=== PATIENT | male | born 1975 | race Two or more races ===

== ENCOUNTER 2017-12-03 10:23 | Observation (INO) | payer BC ==
[2017-12-03] MEDS ORDERED: Sodium Chloride 0.9% 10 ML Syringe FLUSH PRN ×2 (10:57→14:54)
[2017-12-03] MEDS ORDERED: Sodium Chloride 0.9% 2.5 ML Syringe FLUSH PRN ×2 (10:57→14:54)
[2017-12-03] MEDS ORDERED: Sodium Chloride 0.9% 1,000 ML IV ONE (10:57)
[2017-12-03] MEDS ORDERED: Aspirin 81 MG Tab.Chew PO ONE (10:57)
--- NOTE | 2017-12-03 10:59 | EDM.PDOC ---
ED HPI GENERAL MEDICAL PROBLEM - General Chief Complaint: Cardiovascular Problem Stated Complaint: ABNORMAL EKG Time Seen by Provider: 12/03/17 10:58 Source of Information: Reports: Patient History Limitations: Reports: No Limitations - History of Present Illness INITIAL COMMENTS - FREE TEXT/NARRATIVE: HISTORY AND PHYSICAL: History of present illness: Venu is a 42-year-old male who was referred here by [facility] for an abnormal EKG. Patient states that he went into [facility] today for his ankle pain and chest pain. He states that he had been experiencing some chest pain on and off for the past couple of months and EKG was done. The EKG showed possible old inferior infarct. Patient is not currently having any chest pain now, he was given aspirin 325 at [facility]. The pain is on the left side of his chest into his left arm and left jaw and neck. He states he feels short of breath and sweating when he has his pain. Pain does not worsen with activity. Review of systems: As per history of present illness and below otherwise all systems reviewed and negative. Past medical history: As per history of present illness and as reviewed below otherwise noncontributory. Surgical history: As per history of present illness and as reviewed below otherwise noncontributory. Social history: No reported history of drug or alcohol abuse. Family history: As per history of present illness and as reviewed below otherwise noncontributory. Physical exam: General: patient lying comfortably in no acute distress HEENT: Atraumatic, normocephalic, pupils reactive, negative for conjunctival pallor or scleral icterus, mucous membranes moist, throat clear, neck supple, nontender, trachea midline. Lungs: Clear to auscultation, breath sounds equal bilaterally, chest nontender. Heart: S1S2, regular, negative for clicks, rubs, or overt murmurs Abdomen: Soft, nondistended, nontender. Negative for masses or hepatosplenomegaly. Negative for costovertebral tenderness. Extremities: Atraumatic, negative for cords or calf pain. Neurovascular unremarkable. Neuro: Awake, alert, oriented. Cranial nerves II through XII unremarkable. Cerebellum unremarkable. Motor and sensory unremarkable throughout. Exam nonfocal. Notes: Diagnostics: EKG - q waves to inferior leads CBC, CMP, troponin normal lipase, UA Therapeutics: 1 L normal saline IV Impression: Chest pain Plan: Discussed with Dr. Alanis, patient will be admitted for obs with telemetry. Definitive disposition and diagnosis as appropriate pending reevaluation and review of above. - Related Data Allergies Allergy/AdvReac Type Severity Reaction Status Date / Time No Known Allergies Allergy Verified 12/03/17 10:49 Home Meds: Home Meds . [No Known Home Meds] 12/03/17 [History] Past Medical History - Past Health History Medical/Surgical History: Denies Medical/Surgical History - Infectious Disease History Infectious Disease History: Reports: None Social & Family History - Tobacco Use Smoking Status *Q: Current Some Day Smoker Years of Tobacco use: 2 Packs/Tins Daily: 0.1 - Caffeine Use Caffeine Use: Reports: Coffee, Tea - Alcohol Use Days Per Week of Alcohol Use: 7 Number of Drinks Per Day: 2 Total Drinks Per Week: 14 - Recreational Drug Use Recreational Drug Use: No ED ROS GENERAL - Review of Systems Review Of Systems: ROS reveals no pertinent complaints other than HPI. ED EXAM, GENERAL - Physical Exam Exam: See Below (See dictation) Course - Vital Signs Last Recorded V/S: Last Vital Signs Temp 36.5 C 12/03/17 10:49 Pulse 77 12/03/17 13:47 Resp 17 12/03/17 13:47 BP 165/112 H 12/03/17 13:47 Pulse Ox 97 12/03/17 13:47 - Orders/Labs/Meds Orders: Active Orders 24 hr Category Date Time Status Cardiac Monitoring [RC] . DIRECTED Care 12/03/17 10:57 Active EKG Documentation Completion [RC] STAT Care 12/03/17 10:57 Active Pulse Oximetry [RC] ASDIRECTED Care 12/03/17 10:57 Active UA W/MICROSCOPIC [URIN] Stat Lab 12/03/17 11:42 Ordered Sodium Chloride 0.9% [Saline Flush] Med 12/03/17 10:57 Active 10 ml FLUSH ASDIRECTED PRN Sodium Chloride 0.9% [Saline Flush] Med 12/03/17 10:57 Active 2.5 ml FLUSH ASDIRECTED PRN Saline Lock Insert [OM.PC] Stat Oth 12/03/17 10:57 Ordered Medication Orders Sodium Chloride (Saline Flush) 10 ml FLUSH ASDIRECTED PRN PRN Reason: Keep Vein Open Last Admin: 12/03/17 11:33 Dose: 10 ml Sodium Chloride (Saline Flush) 2.5 ml FLUSH ASDIRECTED PRN PRN Reason: Keep Vein Open Last Admin: 12/03/17 11:34 Dose: 2.5 ml Labs: Laboratory Tests 12/03/17 12/03/17 12/03/17 Range/Units 11:10 11:10 11:10 WBC 6.94 (4.0-11.0) K/uL RBC 5.21 (4.50-5.90) M/uL Hgb 15.8 (13.0-17.0) g/dL Hct 46.7 (38.0-50.0) % MCV 89.6 (80.0-98.0) fL MCH 30.3 (27.0-32.0) pg MCHC 33.8 (31.0-37.0) g/dL RDW Std Deviation 41.0 (28.0-62.0) fl RDW Coeff of Huey 13 (11.0-15.0) % Plt Count 210 (150-400) K/uL MPV 9.80 (7.40-12.00) fL Neut % (Auto) 56.7 (48.0-80.0) % Lymph % (Auto) 34.3 (16.0-40.0) % Brown % (Auto) 6.9 (0.0-15.0) % Eos % (Auto) 2.0 (0.0-7.0) % Baso % (Auto) 0.1 (0.0-1.5) % Neut # (Auto) 3.9 (1.4-5.7) K/uL Lymph # (Auto) 2.4 (0.6-2.4) K/uL Brown # (Auto) 0.5 (0.0-0.8) K/uL Eos # (Auto) 0.1 (0.0-0.7) K/uL Baso # (Auto) 0.0 (0.0-0.1) K/uL Nucleated RBC % 0.0 /100WBC Nucleated RBCs # 0 K/uL INR 1.01 Sodium 138 (136-148) mmol/L Potassium 3.7 (3.5-5.1) mmol/L Chloride 104 (98-107) mmol/L Carbon Dioxide 25.3 (21.0-32.0) mmol/L BUN 19 H (7.0-18.0) mg/dL Creatinine 1.1 (0.8-1.3) mg/dL Est Cr Clr Drug Dosing TNP Estimated GFR (MDRD) > 60.0 ml/min Glucose 124 H (74-106) mg/dL Calcium 8.9 (8.5-10.1) mg/dL Total Bilirubin 0.6 (0.2-1.0) mg/dL AST 60 H (15-37) IU/L ALT 97 H (14-63) IU/L Alkaline Phosphatase 93 (46-116) U/L Troponin I < 0.050 (0.000-0.056) ng/mL Total Protein 7.4 (6.4-8.2) g/dL Albumin 3.7 (3.4-5.0) g/dL Globulin 3.7 H (2.0-3.5) g/dL Albumin/Globulin Ratio 1.0 L (1.3-2.8) Lipase 162 (73-393) U/L Urine Color Urine Appearance Urine pH (5.0-8.0) Ur Specific [place] (1.001-1.035) Urine Protein (NEGATIVE) mg/dL Urine Glucose (UA) (NEGATIVE) mg/dL Urine Ketones (NEGATIVE) mg/dL Urine Occult Blood (NEGATIVE) Urine Nitrite (NEGATIVE) Urine Bilirubin (NEGATIVE) Urine Urobilinogen (<2.0) EU/dL Ur Leukocyte Esterase (NEGATIVE) Urine RBC (0-2/HPF) Urine WBC (0-5/HPF) Ur Epithelial Cells (NONE-FEW) Urine Bacteria (NEGATIVE) 12/03/17 Range/Units 11:42 WBC (4.0-11.0) K/uL RBC (4.50-5.90) M/uL Hgb (13.0-17.0) g/dL Hct (38.0-50.0) % MCV (80.0-98.0) fL MCH (27.0-32.0) pg MCHC (31.0-37.0) g/dL RDW Std Deviation (28.0-62.0) fl RDW Coeff of Huey (11.0-15.0) % Plt Count (150-400) K/uL MPV (7.40-12.00) fL Neut % (Auto) (48.0-80.0) % Lymph % (Auto) (16.0-40.0) % Brown % (Auto) (0.0-15.0) % Eos % (Auto) (0.0-7.0) % Baso % (Auto) (0.0-1.5) % Neut # (Auto) (1.4-5.7) K/uL Lymph # (Auto) (0.6-2.4) K/uL Brown # (Auto) (0.0-0.8) K/uL Eos # (Auto) (0.0-0.7) K/uL Baso # (Auto) (0.0-0.1) K/uL Nucleated RBC % /100WBC Nucleated RBCs # K/uL INR Sodium (136-148) mmol/L Potassium (3.5-5.1) mmol/L Chloride (98-107) mmol/L Carbon Dioxide (21.0-32.0) mmol/L BUN (7.0-18.0) mg/dL Creatinine (0.8-1.3) mg/dL Est Cr Clr Drug Dosing Estimated GFR (MDRD) ml/min Glucose (74-106) mg/dL Calcium (8.5-10.1) mg/dL Total Bilirubin (0.2-1.0) mg/dL AST (15-37) IU/L ALT (14-63) IU/L Alkaline Phosphatase (46-116) U/L Troponin I (0.000-0.056) ng/mL Total Protein (6.4-8.2) g/dL Albumin (3.4-5.0) g/dL Globulin (2.0-3.5) g/dL Albumin/Globulin Ratio (1.3-2.8) Lipase (73-393) U/L Urine Color YELLOW Urine Appearance CLEAR Urine pH 6.0 (5.0-8.0) Ur Specific [place] 1.020 (1.001-1.035) Urine Protein NEGATIVE (NEGATIVE) mg/dL Urine Glucose (UA) NEGATIVE (NEGATIVE) mg/dL Urine Ketones NEGATIVE (NEGATIVE) mg/dL Urine Occult Blood NEGATIVE (NEGATIVE) Urine Nitrite NEGATIVE (NEGATIVE) Urine Bilirubin NEGATIVE (NEGATIVE) Urine Urobilinogen 0.2 (<2.0) EU/dL Ur Leukocyte Esterase NEGATIVE (NEGATIVE) Urine RBC NONE SEEN (0-2/HPF) Urine WBC 0-1 (0-5/HPF) Ur Epithelial Cells RARE (NONE-FEW) Urine Bacteria RARE (NEGATIVE) Meds: Medications Generic Name Dose Route Start Last Admin Trade Name Freq PRN Reason Stop Dose Admin Sodium Chloride 10 ml 12/03/17 10:57 12/03/17 11:33 Saline Flush FLUSH 10 ml ASDIRECTED PRN Administration Keep Vein Open Sodium Chloride 2.5 ml 12/03/17 10:57 12/03/17 11:34 Saline Flush FLUSH 2.5 ml ASDIRECTED PRN Administration Keep Vein Open Discontinued Medications Generic Name Dose Route Start Last Admin Trade Name Freq PRN Reason Stop Dose Admin Aspirin 324 mg 12/03/17 10:57 12/03/17 11:54 Aspirin PO 12/03/17 10:58 Not Given ONETIME ONE Sodium Chloride 1,000 mls @ 999 mls/hr 12/03/17 10:57 12/03/17 11:33 Normal Saline IV 12/03/17 11:57 999 mls/hr .Bolus ONE Administration Departure - Departure Time of Disposition: 14:10 Disposition: Refer to Observation Condition: Good Clinical Impression: Chest pain Referrals: PCP,None [Primary Care Provider] - Forms: ED Department Discharge - My Orders Last 24 Hours: My Active Orders 12/03/17 10:57 Cardiac Monitoring [RC] . DIRECTED EKG Documentation Completion [RC] STAT Pulse Oximetry [RC] ASDIRECTED Sodium Chloride 0.9% [Saline Flush] 10 ml FLUSH ASDIRECTED PRN Sodium Chloride 0.9% [Saline Flush] 2.5 ml FLUSH ASDIRECTED PRN Saline Lock Insert [OM.PC] Stat 12/03/17 11:42 UA W/MICROSCOPIC [URIN] Stat - Assessment/Plan Last 24 Hours: My Active Orders 12/03/17 10:57 Cardiac Monitoring [RC] . DIRECTED EKG Documentation Completion [RC] STAT Pulse Oximetry [RC] ASDIRECTED Sodium Chloride 0.9% [Saline Flush] 10 ml FLUSH ASDIRECTED PRN Sodium Chloride 0.9% [Saline Flush] 2.5 ml FLUSH ASDIRECTED PRN Saline Lock Insert [OM.PC] Stat 12/03/17 11:42 UA W/MICROSCOPIC [URIN] Stat
[2017-12-03 11:45] LABS: CHLORIDE,CL 104 mmol/L (98-107); SODIUM,NA 138 mmol/L (136-148)
--- NOTE | 2017-12-03 12:22 | CR ---
EXAMINATION: Portable chest radiograph. HISTORY: Chest pain. FINDINGS: The trachea is midline. The cardiomediastinal silhouette is within normal limits. No pulmonary infilt rates, effusions or pneumothorax. Osseous structures appear unremarkable. IMPRESSION: No acute cardiopulmonary process.
[2017-12-03] MEDS ORDERED: Albuterol 0.083% 2.5 MG/3 ML Neb Soln NEB PRN (14:54)
[2017-12-03] MEDS ORDERED: Morphine 2 MG/ML Syringe IVPUSH PRN (14:54)
[2017-12-03] MEDS ORDERED: atorvaSTATin 40 MG Tab PO SCH (15:01)
[2017-12-03] MEDS ORDERED: Labetalol 20 MG/4 ML Syringe IVPUSH ONE (15:11)
[2017-12-03] MEDS ORDERED: Heparin Sod,Pork In 0.45% Nacl 25,000 UNIT/500 ML IV.SOLN IV SCH (15:15)
[2017-12-03] MEDS ORDERED: Heparin Sodium 5,000 Units/ML Vial IVPUSH ONE (15:15)
[2017-12-03] MEDS ORDERED: Nitroglycerin 2% Oint 1 GM UD Packet TOP PRN (15:57)
--- NOTE | 2017-12-03 20:33 | PCM.SN ---
- Free Text/Narrative Note: [id number]
[2017-12-04] MEDS ORDERED: Aspirin 81 MG Tab.Chew PO SCH (09:00)
--- NOTE | 2017-12-07 06:26 | HP ---
DATE OF : 1975 PRIMARY CARE PHYSICIAN: None PCP HISTORY OF PRESENT ILLNESS: The patient is 42-year-old man with morbid obesity, presented to emergency room, sent from the [facility] because the patient was found to have abnormal EKG. Also he had chest pain today that lasted for about 10 minutes at rest. The patient stated that for the past 3 months, he has chest pain, almost every few days. He also had chest pain last night for about 10 minutes, radiating to the left arm and neck. His EKG shows sinus rate at 81 with inferior infarct, old. Q more than 35 ms in leads II, III and aVF and lateral leads are also involved, lateral Q or ST-T abnormalities. [place] interval 180, QRS 109, QT 377, QTc 388. The patient went to admit clinic because 3 months ago he had left ankle injury and he has pain in the left ankle on and off and he was seen there for Workman's Compensation REVIEW OF SYSTEMS: A 12-point review of system is negative except as in history of present illness. PAST MEDICAL HISTORY: The patient has hypertension but is not being treated for hypertension. He does not take any medication for hypertension. SURGICAL HISTORY: None. SOCIAL HISTORY: Smokes occasionally. Alcohol or beer a day when he comes from work. No drug use. Works in construction. FAMILY HISTORY: His mom had diabetes mellitus and hypertension. Father has hypertension and diabetes mellitus. He had a grandfather who had [place] at age 55. The patient did not check his cholesterol and did not have any recent blood work. ALLERGIES: He does not have any known drug allergies. LABORATORY DATA: At admission WBC 6.94, hemoglobin 15.8, hematocrit 46.7, and platelet count is 210. INR 1.01. Sodium 138, potassium 2.7, chloride 104, CO2 of 25.3, BUN 19, creatinine 1.1, glucose 124, calcium 8.9, total bilirubin 0.6, AST 90, ALT 97, alkaline phosphatase 93. Troponin less than 0.05. Total protein 7.4, albumin 3.7, globulin 3.7, and lipase 162. Urine color is yellow, appearance clear, pH 6, urine specific gravity 1.020, urine protein negative, urine glucose negative, urine ketones negative, urine occult blood negative, urine nitrite negative, urine bilirubin negative, urobilinogen 0.2, leukocyte esterase negative, rbc none seen, wbc's 0 to 1. Chest x-ray no acute cardiopulmonary process. PHYSICAL EXAMINATION: VITAL SIGNS: At admission pulse 77, temperature 36.5, respiratory rate 17, blood pressure 165/112, pulse oximetry 97%. HEENT: Head is atraumatic, normocephalic. Pupils equally reactive to light. NECK: Supple. No thyromegaly. No lymphadenopathy. HEART: S1, S2. Regular rhythm and rate. No murmurs. LUNGS: Clear to auscultation bilaterally. ABDOMEN: Obese. There are stretch dinero that are purple and bluish. Soft, nontender. Positive bowel sounds. EXTREMITIES: No edema. ASSESSMENT: 1. Unstable angina. 2. Uncontrolled hypertension stage II. 3. Morbid obesity. 4. Optimal EKG with ischemic changes and old infarct. PLAN: We will admit the patient to medical telemetry to observation bed and start the patient on heparin drip. We will give patient atorvastatin 40 mg p.o. one dose and labetalol 20 mg IV to control the blood pressure. We will order follow up troponins and we will arrange the patient to be transferred for cardiac cath to [place]. The patient will need a lipid profile and hemoglobin A1c fasting and also TSH. For ischemic changes on EKG, we will put the patient on nitroglycerin paste 2% q.6 hours anterior chest wall. DISCHARGE SUMMARY: The patient discussed with Dr. Yin. Emergency room physician in [facility], he accepted the patient to be transferred there so the patient can have a cardiac catheterization for unstable angina. I have discussed the case also with Dr. Mayer, welt trimming machine operator, and he agrees with the plan. The patient was in the hospital at 1024 hours and he did not have any other chest pain after he was admitted. CAMILLE / MOHIT /[id number]
== END 2017-12-03 16:53 ==
LOC: MW.ED 10:23 → MW.MS 14:47
PROVIDERS: ADMIT Internal Medicine; ATTEND Internal Medicine
DX: I20.0 Unstable angina (principal); I10 Essential (primary) hypertension; E66.01 Morbid (severe) obesity due to excess calories; F17.210 Nicotine dependence, cigarettes, uncomplicated; Z86.73 Personal history of transient ischemic attack (TIA), and cerebral infarction without residual deficits
CPT/HCPCS: 36415; 71045; 80053; 81001; 83690; 84484; 85025; 85610; 93005; 96361; 96372; 96374; 99285; A9270; G0378; J1644; J3490; J7040; 96360

== ENCOUNTER 2020-04-12 06:37 | Emergency (ER) | payer BC, OTHER ==
[2020-04-12] MEDS ORDERED: Albuterol HFA 18 Gm Inhaler INH STA (07:15)
[2020-04-12] MEDS ORDERED: Ketorolac 15 MG/ML SDV IM ONE (07:16)
[2020-04-12] MEDS ORDERED: Famotidine 20 MG Tab PO ONE (07:16)
--- NOTE | 2020-04-12 07:30 | EDM.PDOC ---
ED HPI GENERAL MEDICAL PROBLEM - General Chief Complaint: Abdominal Pain Stated Complaint: SHARP RIGHT SIDE PAIN/BACK PAIN Time Seen by Provider: 04/12/20 07:01 - History of Present Illness INITIAL COMMENTS - FREE TEXT/NARRATIVE: CHIEF COMPLAINT(S): Right-sided abdominal pain HISTORY OF PRESENT ILLNESS: This is a 44-year-old man with a past medical history of obesity and hypertension who comes to the emergency department with a chief complaint of right-sided abdominal pain. The patient states that for the last 1 to 2 days he has been experiencing right-sided abdominal pain located just around the inferior part of his ribs which radiates to his flank. He rates his pain as 5 out of 10, sharp, and intermittent. He states that the pain is worse with movement. He states that not moving improves the symptoms. He state s that there is no associated pain with eating. He denies any associated symptoms such as nausea, vomiting, diarrhea. He denies any chest pain or shortness of breath. He states that he tried Tylenol without any relief. He states that he came to the emergency department because his was concerned about appendicitis. He denies any fevers, chills. He states that he did have coronavirus approximately 1 month ago and he still has lingering cough and congestion. He denies any lower extremity edema, recent travel, recent surgery or prior history of DVT or PE. He states that he does drink a significant amount of alcohol daily approximately 72 ounces of beer per day. He denies any history of alcohol withdrawal or alcohol withdrawal seizures. He denies any liver issues. REVIEW OF SYSTEMS: Constitutional: Denies fever, chills. Eyes: Denies eye pain Ears, Nose, Mouth, & Throat: Denies earache Cardiovascular: Denies chest pain Respiratory: Denies shortness of breath Gastrointestinal: Positive for right-sided abdominal pain. Denies nausea, vomiting, diarrhea, hematochezia, melena, hematemesis, bilious emesis Genitourinary: Denies hematuria, dysuria Skin:Denies a rash Neurological: Denies blurred vision Psychiatric: Denies depression PAST MEDICAL HISTORY: As per history of present illness and as reviewed below otherwise noncontributory. SURGICAL HISTORY: As per history of present illness and as reviewed below otherwise noncontributory. SOCIAL HISTORY: As per history of present illness and as reviewed below otherwise noncontributory. FAMILY HISTORY: As per history of present illness and as reviewed below otherwise noncontributory. EXAMINATION OF ORGAN SYSTEMS/BODY AREAS: Constitutional: Blood pressure was 112/75, heart rate 106, respiratory rate 18 with an oxygen saturation of 96% on room air. Temperature 37.2 General: Obese gentleman who does not appear to be in any acute distress. Psychiatric: Appropriate mood and affect. Eyes: No scleral icterus or conjunctival erythema ENMT: Moist mucous membranes. No pharyngeal erythema Cardiovascular: Regular, rate, and rythym. No gallops, murmurs, or rubs. Bilateral upper extremity pulses symmetric and intact. No peripheral edema. No JVD. Respiratory: Patient is speaking in full sentences. There is good air entry bilaterally. The patient does have asymmetric wheezing with wheezing at the right base. No crackles or rhonchi. Gastrointestinal: Soft, nondistended but obese with abdominal striae a, and right upper quadrant pain without any Ochoa sign rebound or guarding. The pain also extends along the inferior rib along to the right flank. No overlying skin changes. Normoactive bowel sounds Genitourinary: No suprapubic tenderness no CVA tenderness. Musculoskeletal: Normal range of motion. Skin: No lesions or abrasions. Neurological: Alert, GCS 15 MEDICAL DECISION MAKING AND COURSE IN THE ED WITH INTERPRETATION/REVIEW OF DIAGNOSTIC STUDIES: This is a 44-year-old man with a past medical history of obesity and hypertension who comes to the emergency department with right upper quadrant, right chest wall, and right flank pain who has asymmetric wheezing on examination. At this time the patient overall appears well. Will encourage p.o. fluid. We will provide the patient with Toradol and famotidine. Will obtain labs to evaluate for transaminitis, pancreatitis or acute kidney injury. Will obtain CBC, CMP, and lipase. Will obtain a chest x-ray given the asymmetric wheezing and provide the patient with albuterol inhaler. I do not believe any other labs or imaging are indicated at this time. Laboratory: CBC is unremarkable. CMP reveals hyponatremia 128, hypochloremia at 90, acute kidney injury with a BUN of 22 and a creatinine of 1.50, hyperglycemia at 126, transaminitis with an AST of 51 and ALT of 77. Lipase is 73. The radiological images were viewed by myself along with reading the report from the radiologist. Chest x-ray does not reveal any acute cardiopulmonary process. After labs and imaging I did discuss results with the patient. I did discuss with him at this time that I would like to obtain further work-up including coags, lactic acid, urinalysis. I also discussed obtaining a CT abdomen pelvis for further evaluation given the right upper quadrant pain and his transaminitis and acute kidney injury. He was amenable to this plan. At this time the patient stated that he felt mildly better. Given the acute kidney injury will provide the patient with 1 L of normal saline bolus. Laboratory: Coags are within normal limits. Lactic acid is 1.7. Coronavirus is positive. Urinaylysis was a clean catch and was negative for leukocyte esterase, negative for nitrites, and negative for blood. Interpretation: Negative CT did come to picker and sorter load and unload the patient for CT however it appears that the patient had dressed in his close, removed his IV and left the hospital. I did attempt to contact the patient at the number provided in his demographic r eport. The phone was not answered but I did leave a message encouraging the patient to return to the emergency department for further work-up. I did provide the patient with a contact number for primary care physician here. DISPOSITION: The patient left out completing treatment CONDITION: Fair PROCEDURES: None FINAL IMPRESSION(S)/DIAGNOSES: 1. Acute kidney injury 2. Acute transaminitis 3. Acute coronavirus 4. Acute hyponatremia 5. Acute hypochloremia 6. Alcohol use disorder Adin Colon M.D. Right Abdomen Pain Score (Numeric/FACES): 3 - Related Data Allergies Allergy/AdvReac Type Severity Reaction Status Date / Time No Known Allergies Allergy Verified 04/12/20 06:48 Home Meds: Home Meds Aspirin 81 mg PO DAILY 12/03/17 [History] lisinopriL [Lisinopril] 04/12/20 [History] Past Medical History - Past Health History Medical/Surgical History: Denies Medical/Surgical History Cardiovascular History: Reports: Hypertension - Infectious Disease History Infectious Disease History: Reports: Chicken Pox Social & Family History - Family History Family Medical History: No Pertinent Family History - Caffeine Use Caffeine Use: Reports: Coffee - Recreational Drug Use Recreational Drug Use: No ED ROS GENERAL - Review of Systems Review Of Systems: See Below ED EXAM, GENERAL - Physical Exam Exam: See Below Course - Vital Signs Last Recorded V/S: Last Vital Signs Temp 37.2 C 04/12/20 06:51 Pulse 93 04/12/20 08:54 Resp 20 04/12/20 08:54 BP 136/71 04/12/20 08:54 Pulse Ox 95 04/12/20 08:54 - Orders/Labs/Meds Orders: Active Orders 24 hr Category Date Time Status HEPATITIS PANEL (4) [REF] Stat Lab 04/12/20 07:24 Received Labs: Laboratory Tests 04/12/20 04/12/20 04/12/20 Range/Units 06:46 07:24 07:24 WBC 6.37 (4.0-11.0) K/uL RBC 5.32 (4.50-5.90) M/uL Hgb 16.5 (13.0-17.0) g/dL Hct 48.3 (38.0-50.0) % MCV 90.8 (80.0-98.0) fL MCH 31.0 (27.0-32.0) pg MCHC 34.2 (31.0-37.0) g/dL RDW Std Deviation 42.1 (28.0-62.0) fl RDW Coeff of Huey 13 (11.0-15.0) % Plt Count 192 (150-400) K/uL MPV 9.90 (7.40-12.00) fL Neut % (Auto) 60.9 (48.0-80.0) % Lymph % (Auto) 25.4 (16.0-40.0) % Barron % (Auto) 13.5 (0.0-15.0) % Eos % (Auto) 0.0 (0.0-7.0) % Baso % (Auto) 0.2 (0.0-1.5) % Neut # (Auto) 3.9 (1.4-5.7) K/uL Lymph # (Auto) 1.6 (0.6-2.4) K/uL Barron # (Auto) 0.9 H (0.0-0.8) K/uL Eos # (Auto) 0.0 (0.0-0.7) K/uL Baso # (Auto) 0.0 (0.0-0.1) K/uL Nucleated RBC % 0.0 /100WBC Nucleated RBCs # 0 K/uL INR Lactate (0.20-2.00) mmol/L Sodium 128 L (136-148) mmol/L Potassium 4.1 (3.5-5.1) mmol/L Chloride 90 L (98-107) mmol/L Carbon Dioxide 30.7 (21.0-32.0) mmol/L BUN 22 H (7.0-18.0) mg/dL Creatinine 1.5 H (0.8-1.3) mg/dL Est Cr Clr Drug Dosing 57.30 mL/min Estimated GFR (MDRD) 51.1 ml/min Glucose 126 H (74-106) mg/dL Calcium 8.7 (8.5-10.1) mg/dL Total Bilirubin 0.8 (0.2-1.0) mg/dL AST 51 H (15-37) IU/L ALT 77 H (14-63) IU/L Alkaline Phosphatase 97 (46-116) U/L Total Protein 8.1 (6.4-8.2) g/dL Albumin 3.8 (3.4-5.0) g/dL Globulin 4.3 H (2.6-4.0) g/dL Albumin/Globulin Ratio 0.9 (0.9-1.6) Lipase 73 (73-393) U/L Urine Color YELLOW Urine Appearance CLEAR Urine pH 5.5 (5.0-8.0) Ur Specific [place] 1.015 (1.001-1.035) Urine Protein TRACE H (NEGATIVE) mg/dL Urine Glucose (UA) NEGATIVE (NEGATIVE) mg/dL Urine Ketones NEGATIVE (NEGATIVE) mg/dL Urine Occult Blood NEGATIVE (NEGATIVE) Urine Nitrite NEGATIVE (NEGATIVE) Urine Bilirubin NEGATIVE (NEGATIVE) Urine Urobilinogen 0.2 (<2.0) EU/dL Ur Leukocyte Esterase NEGATIVE (NEGATIVE) Urine RBC 0-1 (0-2/HPF) Urine WBC 0-2 (0-5/HPF) Ur Epithelial Cells RARE (NONE-FEW) Urine Bacteria RARE (NEGATIVE) SARS-CoV-2 RNA (SIVA) (NEGATIVE) 04/12/20 04/12/20 04/12/20 Range/Units 07:24 08:15 08:23 WBC (4.0-11.0) K/uL RBC (4.50-5.90) M/uL Hgb (13.0-17.0) g/dL Hct (38.0-50.0) % MCV (80.0-98.0) fL MCH (27.0-32.0) pg MCHC (31.0-37.0) g/dL RDW Std Deviation (28.0-62.0) fl RDW Coeff of Huey (11.0-15.0) % Plt Count (150-400) K/uL MPV (7.40-12.00) fL Neut % (Auto) (48.0-80.0) % Lymph % (Auto) (16.0-40.0) % Barron % (Auto) (0.0-15.0) % Eos % (Auto) (0.0-7.0) % Baso % (Auto) (0.0-1.5) % Neut # (Auto) (1.4-5.7) K/uL Lymph # (Auto) (0.6-2.4) K/uL Barron # (Auto) (0.0-0.8) K/uL Eos # (Auto) (0.0-0.7) K/uL Baso # (Auto) (0.0-0.1) K/uL Nucleated RBC % /100WBC Nucleated RBCs # K/uL INR 1.11 Lactate 1.7 (0.20-2.00) mmol/L Sodium (136-148) mmol/L Potassium (3.5-5.1) mmol/L Chloride (98-107) mmol/L Carbon Dioxide (21.0-32.0) mmol/L BUN (7.0-18.0) mg/dL Creatinine (0.8-1.3) mg/dL Est Cr Clr Drug Dosing mL/min Estimated GFR (MDRD) ml/min Glucose (74-106) mg/dL Calcium (8.5-10.1) mg/dL Total Bilirubin (0.2-1.0) mg/dL AST (15-37) IU/L ALT (14-63) IU/L Alkaline Phosphatase (46-116) U/L Total Protein (6.4-8.2) g/dL Albumin (3.4-5.0) g/dL Globulin (2.6-4.0) g/dL Albumin/Globulin Ratio (0.9-1.6) Lipase (73-393) U/L Urine Color Urine Appearance Urine pH (5.0-8.0) Ur Specific [place] (1.001-1.035) Urine Protein (NEGATIVE) mg/dL Urine Glucose (UA) (NEGATIVE) mg/dL Urine Ketones (NEGATIVE) mg/dL Urine Occult Blood (NEGATIVE) Urine Nitrite (NEGATIVE) Urine Bilirubin (NEGATIVE) Urine Urobilinogen (<2.0) EU/dL Ur Leukocyte Esterase (NEGATIVE) Urine RBC (0-2/HPF) Urine WBC (0-5/HPF) Ur Epithelial Cells (NONE-FEW) Urine Bacteria (NEGATIVE) SARS-CoV-2 RNA (SIVA) POSITIVE H (NEGATIVE) Meds: Medications Discontinued Medications Generic Name Dose Route Start Last Admin Trade Name Freq PRN Reason Stop Dose Admin Albuterol 2 gm 04/12/20 07:15 04/12/20 07:25 Ventolin Hfa INH 04/12/20 07:16 2 gm Q4H STA Administration Famotidine 20 mg 04/12/20 07:16 04/12/20 07:25 Pepcid PO 04/12/20 07:17 20 mg ONETIME ONE Administration Sodium Chloride 1,000 mls @ 999 mls/hr 04/12/20 08:05 04/12/20 08:12 Normal Saline IV 04/12/20 09:05 999 mls/hr .Bolus ONE Administration Ketorolac Tromethamine 15 mg 04/12/20 07:16 04/12/20 07:25 Toradol IM 04/12/20 07:17 15 mg ONETIME ONE Administration Departure - Departure Time of Disposition: 09:28 Disposition: Eloped 07 Condition: Fair Clinical Impression: Transaminitis, Acute kidney injury Abdominal pain Qualifiers: Abdominal location: right upper quadrant Qualified Code(s): R10.11 - Right upper quadrant pain - Discharge Information *PRESCRIPTION DRUG MONITORING PROGRAM REVIEWED*: No *COPY OF PRESCRIPTION DRUG MONITORING REPORT IN PATIENT LIYAH: No Referrals: PCP,None [Primary Care Provider] - Forms: ED Department Discharge Sepsis Event Note (ED) - Evaluation Sepsis Screening Result: No Definite Risk - Focused Exam Vital Signs: Vital Signs Temp Pulse Resp BP Pulse Ox 04/12/20 08:54 93 20 136/71 95 04/12/20 08:24 93 16 124/72 93 L 04/12/20 06:51 37.2 C 106 H 18 112/75 93 L - My Orders Last 24 Hours: My Active Orders 04/12/20 07:24 HEPATITIS PANEL (4) [REF] Stat - Assessment/Plan Last 24 Hours: My Active Orders 04/12/20 07:24 HEPATITIS PANEL (4) [REF] Stat
[2020-04-12 07:51] LABS: CARBON DIOXIDE,CO2 30.7 mmol/L (21.0-32.0); POTASSIUM,K 4.1 mmol/L (3.5-5.1)
[2020-04-12] MEDS ORDERED: Sodium Chloride 0.9% 1,000 ML IV ONE (08:05)
--- NOTE | 2020-04-12 08:18 | CR ---
HISTORY: Cough and wheezing. History of prior COVID. TECHNIQUE: One view of the chest. COMPARISON: 12/03/2017. FINDINGS: No consolidation or pulmonary edema. No pneumothorax or pleural effusion. The cardiac size is within normal limits. IMPRESSION: No focal lung infiltrate or pulmonary edema. Dictated by Edward Quiroz MD @ 04/12/2020 8:17:04 AM Dictated by: Edward Quiroz MD @ 04/12/2020 08:17:08 (Electronically Signed)
== END 2020-04-12 09:28 | disposition left against medical advice (07) ==
LOC: MW.ED 06:37
DX: N17.9 Acute kidney failure, unspecified (principal); I10 Essential (primary) hypertension; R74.01 Elevation of levels of liver transaminase levels; U07.1 COVID-19; E87.8 Other disorders of electrolyte and fluid balance, not elsewhere classified; E66.9 Obesity, unspecified; Z68.42 Body mass index [BMI] 45.0-49.9, adult; E87.1 Hypo-osmolality and hyponatremia; Z72.89 Other problems related to lifestyle; Z79.82 Long term (current) use of aspirin; Z79.899 Other long term (current) drug therapy
CPT/HCPCS: 36415; 71045; 80053; 80074; 81001; 83605; 83690; 85025; 85610; 87635; 96372; 99284; A9270; J1885; J7030; J3535-GY; U0002

== ENCOUNTER 2020-07-23 04:29 | Emergency (ER) | payer SELFPAY ==
[2020-07-23] MEDS ORDERED: Bupivacaine 0.5% 10 ML SDV INJECT ONE (05:07)
[2020-07-23] MEDS ORDERED: Bupivacaine 0.5% 10 ML SDV ONE (05:08)
[2020-07-23] MEDS ORDERED: Lidocaine 2% Viscous Solution 15 ML Cup ONE (05:09)
[2020-07-23] MEDS ORDERED: Benzocaine 20% Topical Spray UD MUCMEM ONE (05:10)
[2020-07-23] MEDS ORDERED: Lidocaine 2% Viscous Solution 15 ML Cup PO ONE (05:10)
[2020-07-23] MEDS ORDERED: Amoxicillin/Clavulanate K 875-125 MG Tab PO ONE (05:14)
--- NOTE | 2020-07-23 05:28 | EDM.PDOC ---
ED HPI GENERAL MEDICAL PROBLEM - General Chief Complaint: ENT Problem Stated Complaint: HEADACHE, TOOTH INFECTION, BLOOD PRESSURE ISSUES Time Seen by Provider: 07/23/20 04:42 - History of Present Illness INITIAL COMMENTS - FREE TEXT/NARRATIVE: CHIEF COMPLAINT(S): Right-sided tooth pain HISTORY OF PRESENT ILLNESS: This is a 44-year-old man with a past medical history of hypertension who comes to the emergency department with a chief complaint of an right-sided tooth pain. The patient states that for approximately 1 week he has been experiencing right-sided tooth pain due to a cavity. He is brought in by his over concern for abscess. She states that he had some mild right-sided facial swelling but denies any drooling, problems opening mouth, headache, blurry vision, loss of vision or diplopia. They deny any fevers. They state that they just recently lost her job so they are currently awaiting Medicaid for a dental appointment. They have contacted a dentist however and have not scheduled an appointment with them. He rates the pain as 10 out of 10 without any radiation. He states that he has tried ibuprofen without any significant relief. He states that the pain is exacerbated by touching the tooth. He denies any associated symptoms such as nausea, vomiting, or abdominal pain. REVIEW OF SYSTEMS: Constitutional: Denies fever, chills. Eyes: Denies eye pain Ears, Nose, Mouth, & Throat: Positive for right-sided dental pain. Denies trismus, drooling denies earache Cardiovascular: Denies chest pain Respiratory: Denies shortness of breath Gastrointestinal: Denies Nausea, vomiting, diarrhea, hematochezia. Genitourinary: Denies hematuria Skin:Denies a rash MSK: Denies joint pain Neurological: Denies blurred vision Psychiatric: Denies depression PAST MEDICAL HISTORY: As per history of present illness and as reviewed below otherwise noncontributory. SURGICAL HISTORY: As per history of present illness and as reviewed below otherwise noncontributory. SOCIAL HISTORY: As per history of present illness and as reviewed below otherwise noncontributory. FAMILY HISTORY: As per history of present illness and as reviewed below otherwise noncontributory. EXAMINATION OF ORGAN SYSTEMS/BODY AREAS: Constitutional: Blood pressure is 180/110, heart rate 75, respiratory rate 18 with an oxygen saturation 95% on room air. Temperature 36.6 General: Overall well-appearing man who is in no acute distress Psychiatric: Appropriate mood and affect. Eyes: No scleral icterus or conjunctival erythema ENMT: Moist mucous membranes. No pharyngeal erythema the gumline appears nonerythematous without any evidence of periapical abscess. There is a tooth on the right upper jaw that is a cavity that is tender to touch but there is no buccal swelling or erythema. There is no mastoid tenderness. There is no trismus or drooling. Cardiovascular: Regular, rate, and rhythm. No gallops, murmurs, or rubs. Bilateral upper extremity pulses symmetric and intact. No peripheral edema. No JVD. Respiratory: Lungs clear to auscultation bilaterally. No wheezes, rales, or rhonchi. Neurological: Alert, GCS 15 MEDICAL DECISION MAKING AND COURSE IN THE ED WITH INTERPRETATION/REVIEW OF DIAGNOSTIC STUDIES: This is a 44-year-old man and with a past medical history of hypertension who comes to the emergency department with 1 week of dental pain located in the right upper jaw. At this time there is no evidence of infection externally however there could be a dental abscess. We will start the patient on antibiotics. I did offer the patient a dental block. He was amenable to this plan. Using 0.5% bupivacaine I did inject 1 to 2 cc just above the tooth. There were no known complications. I did send a prescription for antibiotics and I discussed that he needs to follow-up with his primary care physician for further blood pressure management. He was amenable to discharge at this time and had no further questions. DISPOSITION: The patient was discharged home in stable condition. The patient will follow up with primary care physician and dentist within 1 day CONDITION: Fair PROCEDURES: Dental block FINAL IMPRESSION(S)/DIAGNOSES: 1. Acute dental pain likely secondary to dental abscess versus dental carry Adin Colon M.D. R upper tooth Pain Score (Numeric/FACES): 8 - Related Data Allergies Allergy/AdvReac Type Severity Reaction Status Date / Time No Known Allergies Allergy Verified 07/23/20 04:40 Home Meds: Home Meds Aspirin 81 mg PO DAILY 12/03/17 [History] lisinopriL [Lisinopril] 04/12/20 [History] Amoxicillin/Potassium Clav [Amox Tr-K Clv 875-125 mg Tab] 1 each PO BID #14 tablet 07/23/20 [Rx] Past Medical History - Past Health History Medical/Surgical History: Denies Medical/Surgical History Cardiovascular History: Reports: Hypertension - Infectious Disease History Infectious Disease History: Reports: Chicken Pox Social & Family History - Family History Family Medical History: No Pertinent Family History - Caffeine Use Caffeine Use: Reports: Tea - Recreational Drug Use Recreational Drug Use: No ED ROS GENERAL - Review of Systems Review Of Systems: See Below ED EXAM, GENERAL - Physical Exam Exam: See Below Course - Vital Signs Last Recorded V/S: Last Vital Signs Temp 36.7 C 07/23/20 05:39 Pulse 91 07/23/20 05:39 Resp 18 07/23/20 05:39 BP 162/111 H 07/23/20 05:39 Pulse Ox 95 07/23/20 05:39 - Orders/Labs/Meds Meds: Medications Discontinued Medications Generic Name Dose Route Start Last Admin Trade Name Freq PRN Reason Stop Dose Admin Amoxicillin/Clavulanate Potassium 1 tab 07/23/20 05:14 07/23/20 05:21 Augmentin 875 Mg/125 Mg PO 07/23/20 05:15 1 tab ONETIME ONE Administration Benzocaine 2 each 07/23/20 05:10 07/23/20 05:19 Hurricaine One 20% MUCMEM 07/23/20 05:11 2 each ONETIME ONE Administration Bupivacaine HCl 10 ml 07/23/20 05:07 07/23/20 05:09 Sensorcaine-Mpf 0.5% INJECT 07/23/20 05:08 10 ml ONETIME ONE Administration Bupivacaine HCl Confirm 07/23/20 05:08 07/23/20 05:20 Sensorcaine-Mpf 0.5% Administered 07/23/20 05:09 Not Given Dose 10 ml .ROUTE .STK-MED ONE Lidocaine HCl 15 ml 07/23/20 05:10 07/23/20 05:19 Xylocaine 2% Viscous PO 07/23/20 05:11 15 ml ONETIME ONE Administration Lidocaine HCl Confirm 07/23/20 05:09 07/23/20 05:20 Xylocaine 2% Viscous Administered 07/23/20 05:10 Not Given Dose 15 ml .ROUTE .STK-MED ONE Departure - Departure Time of Disposition: 05:27 Disposition: Home, Self-Care 01 Condition: Fair Clinical Impression: Dental abscess - Discharge Information *PRESCRIPTION DRUG MONITORING PROGRAM REVIEWED*: No *COPY OF PRESCRIPTION DRUG MONITORING REPORT IN PATIENT LIYAH: No Prescriptions: Amoxicillin/Potassium Clav [Amox Tr-K Clv 875-125 mg Tab] 1 each PO BID #14 tablet Instructions: Dental Abscess, [id number] Referrals: Mir Merritt MD [Primary Care Provider] - Forms: ED Department Discharge Additional Instructions: You evaluate today on an emergent basis. At this time you did have dental pain but I did not see any infection on your gumline or cheek. I did start you on antibiotics as there can be abscess underneath the tooth. Please take this twice a day. The only remedy for this dental pain is to see a dentist therefore I do recommend that you follow-up with a dentist sooner rather than later. Your blood pressure was elevated however I do believe this is secondary to pain. I would like you to follow-up with your primary care doctor for continued blood pressure management. If you have any new or worsening symptoms please return to the emergency department. [facility] - Primary Care [address] [place], [place] [id number] [place] [address] The patient is informed of any results of their evaluation and diagnostic workup and all questions are answered. They are given discharge instructions and return precautions. The patient is stable for discharge. The patient states they understand and agree with the plan and that they will return if their symptoms get worse or if they have any new concerns. The following information is given to patients seen in the emergency department who are being discharged to home. This information is to outline your options for follow-up care. We provide all patients seen in our emergency department with a follow-up referral. The need for follow-up, as well as the timing and circumstances, are variable depending upon the specifics of your emergency department visit. If you don't have a primary care physician on staff, we will provide you with a referral. We always advise you to contact your personal physician following an emergency department visit to inform them of the circumstance of the visit and for follow-up with them and/or the need for any referrals to a consulting specialist. The emergency department will also refer you to a specialist when appropriate. This referral assures that you have the opportunity for follow-up care with a specialist. All of these measure are taken in an effort to provide you with optimal care, which includes your follow-up. Under all circumstances we always encourage you to contact your private physician who remains a resource for coordinating your care. When calling for follow-up care, please make the office aware that this follow-up is from your recent emergency room visit. If for any reason you are refused follow-up, please contact the [facility] Emergency Department at and asked to speak to the emergency department charge nurse. Sepsis Event Note (ED) - Evaluation Sepsis Screening Result: No Definite Risk
== END 2020-07-23 05:39 | disposition home or self-care (01) ==
LOC: MW.ED 04:29
DX: K04.7 Periapical abscess without sinus (principal); K02.9 Dental caries, unspecified; I10 Essential (primary) hypertension; Z79.82 Long term (current) use of aspirin
CPT/HCPCS: 64400; 99282; A9270; J3490

== ENCOUNTER 2023-10-06 12:53 | Emergency (ER) | payer SELFPAY ==
[2023-10-06 13:19] LABS: BASOPHILS ABSOLUTE AUTO 0.04 K/uL (0.00-0.20); BASOPHILS PERCENT AUTO 0.4 % (0.0-1.0); EOSINOPHILS ABSOLUTE AUTO 0.11 K/uL (0.00-0.45); HEMATOCRIT 54.5 % (42.0-52.0); IMMATURE GRAN ABSOLUTE AUTO 0.05 K/uL (0.00-0.05); IMMATURE GRAN PERCENT AUTO 0.5 % (0.0-0.4); LYMPHOCYTES ABSOLUTE AUTO 2.48 K/uL (1.00-4.80); LYMPHOCYTES PERCENT AUTO 22.4 % (24.0-44.0); MEAN CORPUSCULAR HEMOGLOBIN 30.2 pg (28.0-32.0); MEAN CORPUSCULAR VOLUME 91.4 fL (83.0-99.0); MEAN PLATELET VOLUME 9.9 fL (9.4-12.4); MONOCYTES ABSOLUTE AUTO 0.94 K/uL (0.00-0.80); MONOCYTES PERCENT AUTO 8.5 % (0.0-8.0); NEUTROPHILS ABSOLUTE AUTO 7.44 K/uL (1.80-7.70); NEUTROPHILS PERCENT AUTO 67.2 % (41.0-71.0); PLATELET COUNT,PLT 217 K/uL (150-400); RED BLOOD CELL COUNT 5.96 M/uL (4.52-5.90); WHITE BLOOD CELL COUNT,WBC 11.06 K/uL (3.9-11.3)
[2023-10-06] MEDS: Lisinopril 10 MG Tab PO ONE (13:19)
[2023-10-06] MEDS: Sodium Chloride 0.9% 2.5 ML Syringe FLUSH PRN (13:20)
[2023-10-06] MEDS: Sodium Chloride 0.9% 10 ML Syringe FLUSH PRN (13:20)
[2023-10-06 13:55] LABS: ALBUMIN 3.9 g/dL (3.4-5.0); BILIRUBIN TOTAL 1.1 mg/dL (0.2-1.0); CALCIUM 9.3 mg/dL (8.5-10.1); EST CRCL DRUG DOSING (CG) 92.3 mL/min; POTASSIUM,K 4.1 mmol/L (3.5-5.1); PROTEIN TOTAL,TP 7.9 g/dL (6.4-8.2); TSH ULTRASENSITIVE 0.89 uIU/mL (0.36-3.74)
== END 2023-10-06 14:31 | disposition home or self-care (01) ==
LOC: MW.ED 12:53
DX: R07.9 Chest pain, unspecified (principal); I25.2 Old myocardial infarction; I10 Essential (primary) hypertension; Z75.8 Other problems related to medical facilities and other health care
CPT/HCPCS: 36415; 71045; 80053; 84443; 84484; 85025; 93005; 99285; A9270; J3490; 93010; 99283

== ENCOUNTER 2023-12-20 11:39 | Emergency (ER) | payer BC ==
[2023-12-20] MEDS: Ibuprofen 800 MG Tab PO ONE (12:33)
[2023-12-20] MEDS: Acetaminophen 500 MG Tab PO ONE (12:33)
[2023-12-20] MEDS: Lidocaine 4% 1 each Patch TOP STA (12:33)
[2023-12-20] MEDS: Diazepam 2 MG Tab PO ONE (13:27)
== END 2023-12-20 13:55 | disposition home or self-care (01) ==
LOC: MW.ED 11:39
DX: M54.50 Low back pain, unspecified (principal); I10 Essential (primary) hypertension; Z79.899 Other long term (current) drug therapy
CPT/HCPCS: 99283; A9270